=== PATIENT | female | born 1970 ===

== ENCOUNTER 2016-11-26 13:31 | Emergency (ER) | payer MEDICAID, OTHER ==
[2016-11-26 13:32] VITALS: BMI 27.4
[2016-11-26] MEDS ORDERED: Dexamethasone 4 mg/1 ml IM STA (14:06)
[2016-11-26] MEDS ORDERED: Dexamethasone 4 mg/1 ml ONE (14:16)
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
[2016-11-26 15:22] VITALS: O2SAT 95
[2016-11-26 16:00] VITALS: BP 117/81; PULSE 68; RESP 18; TEMP 98
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
== END 2016-11-26 16:04 | disposition home or self-care (01) ==
LOC: C.ER 13:31
DX: S16.1XXA Strain of muscle, fascia and tendon at neck level, initial encounter (principal); V49.59XA Passenger injured in collision with other motor vehicles in traffic accident, initial encounter; Y92.410 Unspecified street and highway as the place of occurrence of the external cause; M54.5 Low back pain
CPT/HCPCS: 70450; 72125; 72131; 96372; 99285; J1100; J1885